=== PATIENT | female | born 1995 | race Caucasian/White ===

== ENCOUNTER 2022-02-06 14:27 | Outpatient (CLI) | payer OTHER, SELFPAY ==
[2022-02-06 16:14] LABS: Basophils Percent Auto 0.4 % (0.2-1.2); Eosinophils Absolute Auto 0.1 K/mm3 (0-0.3); Eosinophils Percent Auto 1.1 % (0-4.4); Hematocrit 34.4 % (37.0-47.0); Hemoglobin 11.6 g/dL (12.0-15.0); Immature Granulocyte Absolute 0.02 K/mm3 (0.00-0.031); Immature Granulocyte Percent A 0.2 % (0-0.5); Lymphocytes Absolute Auto 2.05 K/mm3 (0.9-3.2); Lymphocytes Percent Auto 23.9 % (18.3-44.2); Mean Corpuscular HGB Conc 33.7 g/dl (32-36); Mean Corpuscular Hemoglobin 30.5 pg (26-34); Mean Corpuscular Volume 90.5 fl (80-100); Monocytes Absolute Auto 0.5 K/mm3 (0.1-0.6); Neutrophils Absolute Auto 5.9 K/mm3 (1.3-6.7); Neutrophils Percent Auto 68.4 % (45.5-73.1); Platelet Count Result 232 k/mm3 (150-375); Red Cell Distribution Width 12.5 % (11.5-14.5); White Blood Count 8.6 K/mm3 (4.5-10.0)
[2022-02-06 16:22] LABS: Glucose 1 Hour PP 50gm Dose 105 mg/dL
[2022-02-06 17:04] LABS: HIV 1/2 Ab P24 Ag Result Negative (Negative)
[2022-02-06 17:41] LABS: Hepatitis B Surface Antigen Negative (Negative); Rubella IgG Antibody 15.4 IU/ML
[2022-02-07 11:32] LABS: Rapid Plasma Reagin Non-Reactive (NonReactive)
[2022-02-08 17:31] LABS: CMV IgG Antibody <0.60 U/mL (<0.60)
[2022-02-28 13:46] LABS: CF Result NEGATIVE (NEGATIVE); Ethnicity NG
== END 2022-02-06 14:28 | disposition home or self-care (01) ==
LOC: ANHLAB 14:29
PROVIDERS: PCP Family Medicine; Visit Provider Obstetrics & Gynecology
DX: N94.89 Other specified conditions associated with female genital organs and menstrual cycle (principal)
CPT/HCPCS: 36415; 81220; 82947; 85025; 86592; 86644; 86703; 86747; 86762; 86787; 86850; 86900; 86901; 87086; 87088; 87340; G0432

== ENCOUNTER 2022-04-30 16:11 | Outpatient (CLI) | payer OTHER, SELFPAY ==
[2022-04-30 17:17] VITALS: BP 114/61; PULSE 70
[2022-04-30 17:31] VITALS: BP 110/57; PULSE 64
[2022-04-30 17:32] LABS: Appearance Urine Cloudy (Clear); Bilirubin Urine 1+ (Negative); Blood Urine Negative (Negative); Color Urine Yellow (Yellow); Glucose Urine UA Negative (Negative); Ketones Urine Negative (Negative); Leukocyte Esterase Ur Negative LEU/UL (Negative); Nitrate Urine Negative (Negative); Protein Urine Negative (Negative)
--- NOTE | 2022-04-30 17:43 | PC.NURSE ---
Irritable uterine activity noted; Pt does not feel any uterine contractions; Pt placed back on monitor to further monitor and increased PO hydration
[2022-04-30 17:46] VITALS: BP 114/61; PULSE 64
--- NOTE | 2022-04-30 17:59 | PC.NURSE ---
Report given to Dr. Rodríguez including uterine irritability improved by PO hydration, FHR, negative ROM plus. Orders to discharge patient
[2022-04-30 18:01] LABS: Budding Yeast Urine Present /hpf; Mucus Urine Few /lpf; RBC Urine 0-2 /hpf (0-2)
[2022-04-30 18:02] LABS: Add Urine Microscopic? YES
== END 2022-04-30 18:20 | disposition home or self-care (01) ==
LOC: ANHOBOP 16:16 → ANHOBPP 16:17
PROVIDERS: PCP Family Medicine; Visit Provider Obstetrics & Gynecology
DX: O41.8X90 Other specified disorders of amniotic fluid and membranes, unspecified trimester, not applicable or unspecified (principal); Z3A.00 Weeks of gestation of pregnancy not specified
CPT/HCPCS: 59025; 81001; 84112; 99199

== ENCOUNTER 2022-05-30 09:11 | Outpatient (CLI) | payer OTHER, SELFPAY ==
[2022-05-30 11:04] LABS: Basophils Percent Auto 0.3 % (0.2-1.2); Eosinophils Absolute Auto 0.1 K/mm3 (0-0.3); Eosinophils Percent Auto 0.6 % (0-4.4); Hematocrit 31.7 % (37.0-47.0); Hemoglobin 10.5 g/dL (12.0-15.0); Immature Granulocyte Absolute 0.03 K/mm3 (0.00-0.031); Immature Granulocyte Percent A 0.3 % (0-0.5); Lymphocytes Absolute Auto 1.79 K/mm3 (0.9-3.2); Lymphocytes Percent Auto 18.7 % (18.3-44.2); Mean Corpuscular HGB Conc 33.1 g/dl (32-36); Mean Corpuscular Hemoglobin 30.5 pg (26-34); Mean Corpuscular Volume 92.2 fl (80-100); Mean Platelet Volume 11.1 fl (7.4-10.4); Monocytes Absolute Auto 0.6 K/mm3 (0.1-0.6); Monocytes Percent Auto 6.6 % (2.6-8.5); Neutrophils Percent Auto 73.5 % (45.5-73.1); Platelet Count Result 230 k/mm3 (150-375); Red Blood Count 3.44 M/mm3 (4.2-5.4); Red Cell Distribution Width 12.8 % (11.5-14.5); White Blood Count 9.6 K/mm3 (4.5-10.0)
[2022-05-30 11:16] LABS: Glucose 1 Hour PP 50gm Dose 145 mg/dL
[2022-05-30 11:53] LABS: HIV 1/2 Ab P24 Ag Result Negative (Negative)
== END 2022-05-30 09:12 | disposition home or self-care (01) ==
LOC: ANHLAB 09:13
PROVIDERS: PCP Family Medicine; Visit Provider Obstetrics & Gynecology
DX: Z34.90 Encounter for supervision of normal pregnancy, unspecified, unspecified trimester (principal); Z3A.00 Weeks of gestation of pregnancy not specified
CPT/HCPCS: 36415; 82947; 85025; 86703; G0432

== ENCOUNTER 2022-06-04 08:05 | Outpatient (CLI) | payer OTHER, SELFPAY ==
[2022-06-04 08:40] LABS: Glucose Fasting Gestational 96 mg/dL (>/=95)
[2022-06-04 10:19] LABS: Glucose 1 Hour Gest 194 mg/dL (>/=180)
[2022-06-04 11:18] LABS: Glucose 2 Hour Gest 133 mg/dL (>/= 155)
[2022-06-04 12:19] LABS: Glucose 3 Hour Gest 122 mg/dL (>/=140)
== END 2022-06-04 08:06 | disposition home or self-care (01) ==
LOC: ANHLAB 08:06
PROVIDERS: PCP Family Medicine; Visit Provider Obstetrics & Gynecology
DX: R73.09 Other abnormal glucose (principal)
CPT/HCPCS: 36415; 82951; 82952

== ENCOUNTER 2022-08-11 09:07 | Outpatient (CLI) | payer OTHER, SELFPAY ==
[2022-08-11 09:26] LABS: Hematocrit 33.4 % (37.0-47.0); Hemoglobin 11.7 g/dL (12.0-15.0); Mean Corpuscular Hemoglobin 30.8 pg (26-34); Mean Corpuscular Volume 87.9 fl (80-100); Platelet Count Result 225 k/mm3 (150-375); White Blood Count 7.5 K/mm3 (4.5-10.0)
[2022-08-13 11:53] LABS: Rapid Plasma Reagin Non-Reactive (NonReactive)
== END 2022-08-11 09:08 | disposition home or self-care (01) ==
LOC: ANHLAB 09:09
PROVIDERS: PCP Family Medicine; Visit Provider Obstetrics & Gynecology
DX: Z34.93 Encounter for supervision of normal pregnancy, unspecified, third trimester (principal); Z3A.00 Weeks of gestation of pregnancy not specified
CPT/HCPCS: 36415; 85027; 86592; 86850; 86900; 86901

== ENCOUNTER 2022-08-13 05:28 | Inpatient (IN) | payer OTHER, SELFPAY ==
[2022-08-13] VITALS (66 sets, daily range): BP systolic 117–166; BP diastolic 78–110; PULSE 53–215; RESP 12–18; TEMP 36.6–37.6; O2SAT 92–100; BMI 40.4
--- NOTE | 2022-08-13 05:55 | LDADM ---
This patient, Fadumo Yoder, was admitted to Labor/Delivery/Recovery 120 on 08/13/22 at 05:28. Plans for labor, pain management and were discussed with patient. Patient/family oriented to hospital policies and general routines including ID bracelet, bed and alarms, visiting hours, pain management, procedures, bathroom and other care routines, personal items, smoking policy, room service/diet and guest tray routines, infant security routines, and visiting hours. Patient/Family are encouraged to report perceived risks to care and to ask questions if they do not understand what they are told or what they should do. See [facility] for further documentation.
[2022-08-13] MEDS: LACTATED RINGERS 250 ML 999 ML IVPB (06:30)
--- NOTE | 2022-08-13 06:56 | WPDHPUPDATE1 ---
History and Physical Update Update Date/Time: 08/13/22 06:56 History and Physical has been reviewed, including an updated exam of the patient. There are NO changes in the patient's condition. Risks, benefits, and alternatives have been discussed and questions answered. Patient agrees to proceed with procedure. Fadumo is a 27yo @ 39.2wks who presents for repeat w/ BTL Her is complicated by: - Previous c/s -- for repeat - sterilization requested - Anxiety/depression on zoloft - Obesity - A1GDM; following w/ MFM - Covid infection 08/06/22 FHT's:
--- NOTE | 2022-08-13 07:02 | WPDOBADMIT ---
Obstetrics - Admit Note Admission Note: record reviewed. No pertinent additions to the history and/or any subsequent changes in the physical findings that are not consistent with the expected course of the were found. Additions to the history and/or subsequent changes in the physical findings follow. Fadumo is a 27yo @ 39.2wks who presents for repeat w/ BTL Her is complicated by: - Previous c/s -- for repeat - sterilization requested - Anxiety/depression on zoloft - Obesity - A1GDM; following w/ MFM - Covid infection 08/06/22 FHT's: 125/mod davy/ + accels/ no decels TOCO; irregular ctx's Risks/benefits explained in detail. Proceed with and BTL.
--- NOTE | 2022-08-13 07:03 | WPDHPUPDATE1 ---
History and Physical Update Update Date/Time: 08/13/22 07:03 History and Physical has been reviewed, including an updated exam of the patient. There are NO changes in the patient's condition. Risks, benefits, and alternatives have been discussed and questions answered. Patient agrees to proceed with procedure.
--- NOTE | 2022-08-13 07:12 | WPDANESEPPF ---
Anes - Initial Pre Proc Eval Procedure: Operation Date: 08/13/22 07:30 Proposed Procedures p Repeat Section - Mayuri Borja MD Date/Time: 08/13/22 07:12 Surgeon: Mayuri Borja MD Pre Op Diagnosis: c/s Patient Data Age: 27 Gender: F Height: 1.55 m Weight: 97 kg Last Vital Signs Pulse 83 08/13/22 06:21 BP 127/87 08/13/22 06:21 Allergies Allergy/AdvReac Type Severity Reaction Status Date / Time No Known Allergies Allergy Verified 08/08/22 09:38 Home Medications Medication Instructions Recorded Confirmed Type famotidine 20 mg tablet (Acid 20 mg PO DAILY #90 tabs 01/11/22 08/13/22 Rx Senior Designer/Art Director (famotidine)) vits 75-iron 28 mg-folic 1 pkg PO DAILY 01/11/22 08/13/22 History acid 800 mcg-omega3 440 mg oral pack (One Daily ) sertraline 50 mg tablet 50 mg PO DAILY #90 tabs 01/11/22 07/20/22 Rx pyridoxine (vitamin B6) 25 mg 25 mg PO TID #120 tabs 04/23/22 07/20/22 Rx tablet Patient hx anesthesia problems: none Family hx anesthesia problems: none Results Review: All pre-operative results and documents have been reviewed as part of the pre-operative evaluation. [facility] Past Medical History Medical History Anxiety disorder Depression Suppression of menses Termination of 2014 Surgical History Surgical History History of dilation and curettage 2015 D&C scar tissue- menometrorrhagia History of tonsillectomy Previous section primary c/s - breech presentation Family History Family History Other Patient denies significant medical history Social History Social History Smoking status: Never smoker Alcohol intake: never Substance use: never Substance use type: does not use Lack of Transportation: No Lack of Food: Never True Current Housing: I Have Housing Concerned About Future Housing: No Difficulty Paying Gas/Electric Bills: No Difficulty Paying for Meds: No Currently Unemployed: No Education: High School Diploma/GED Difficulty w/ Childcare or Family Care: No Gender identity (if verbalized by the patient): Female Sexual Orientation (if Verbalized by the Patient): Straight or Heterosexual Spiritual care concerns: No Anes - Eval Final PreProcedure Day of Procedure 08/13/22 07:12 Patient weight: obese Heart: regular rate and rhythm Lungs: clear to auscultation Airway: Mallampati scale class II Neurological: alert and oriented Last oral intake: >/= 8 hours ASA classification: II Emergent: no Anesthetic plan: proceed Anesthesia type and monitoring: regional spinal Results Review: All pre-operative results and documents have been reviewed as part of the pre-operative evaluation. Informed Consent: The patient's anesthetic plan and its attendant risks and benefits were discussed with the patient/family/POA. Questions were solicited and answers provided to the satisfaction of the patient/family/POA.
[2022-08-13] MEDS: ceFAZolin 2 GM/D5W 50 ML 2 GM/50 ML BAG IVPB (07:23)
--- NOTE | 2022-08-13 08:50 | PM.OBPRVD ---
OB - Delivery Note Procedure Delivery date: 08/13/22 Procedure: Procedures Operation Date: 08/13/22 07:30 <No data on this case meets the specified criteria> Events: Previous Delivery Route of delivery: (with bilateral tubal ligation) Quantitative Blood Loss (ml): 555 Anesthesia type: Spinal Disposition: Floor [place] Baby Date of : 08/13/22 Time of : 08:03 Weeks of gestation at delivery: 39 (.2) gender: Male Weight (pounds): 7 Weight (ounces): 11 presentation: vertex Placenta delivery description: Expressed Cord Vessel Description: 3 Vessels, Clamped/Cut and Delayed Cord Clamping score one minute: 9 score five minutes: 9 Narrative: She was counseled on all risks and benefits in detail. She was taken to the operating room where spinal was placed. She was then prepped and draped in the normal sterile fashion. She received 2g Ancef and a time out was performed. A Pfannenstiel incision was made in the skin and carried down to the underlying fascia. The fascia was nicked on either side of the midline and the fascial incision was extended laterally and superiorly using curved Silva scissors. The fascia was then elevated using Leticia clamps and the underlying rectus muscles were dissected off the fascia, superiorly and inferiorly. The rectus muscles were then in the midline and the peritoneum was entered bluntly. Once adequate exposure was obtained, a Mobius self retractor was placed within the abdomen. A low transverse incision was made on the lower uterine segment (noted to be very thin) and thin meconium stained fluid was noted. The occiput was brought to the hysterotomy and the head was easily delivered. The shoulders and body then followed without complications. The infant had spontaneous cry and the mouth and nose were bulb suctioned. The cord was clamped and cut and the infant was handed off to the awaiting pediatric nurse. A segment of the cord was collected for cord gases. The remaining cord blood was collected for typing. With pitocin infusing, the placenta delivered with gentle traction on the cord without complications. The uterus was then cleared out of all clots and debris using a clean, moist lap. The hysterotomy was then repaired in a running, locking fashion using 0 Vicryl. A figure of eight stitch using 0 Vicryl was placed in the middle of the hysterotomy, and it was found to be hemostatic and good uterine tone was noted. The bilateral adnexa were examined and found to be normal. The left fallopian tube was elevated using a [place]; slight adhesions were noted and some were released in order to do the tubal. A segment of the tubal was doubly ligated using 0 Chromic suture. The tubal segment was incised and removed from the abdomen. The raw edges were bovie cauterized. The same procedure was then performed on the right side without issue. Good hemostasis was noted. The hysterotomy was examined and found to be hemostatic. The pelvis was cleared of all clots and fluid. The Mobius retractor was removed from the abdomen. The peritoneum, muscle, and fascia were examined and made hemostatic with bovie cautery. The fascia was then repaired using a 0 Vicryl suture in a running fashion. The subcutaneous tissue was then irrigated and made hemostatic with bovie cautery. The subcutaneous tissue was then reapproximated using 2-0 Vicryl. The skin was then closed using 4-0 Monocryl in a running subcuticular fashion. Sponge, lap, needle and instrument counts were correct at the end of the procedure x2. The patient tolerated the procedure well and was taken to recovery in a stable condition. [facility] Delivery Billing Delivery Delivery: Delivery Charge
[2022-08-13] MEDS: KETOROLAC 15 MG/ML VIAL (*BKC) IV PUSH (09:09)
[2022-08-13] MEDS: LORATADINE 10 MG TABLET PO (09:12)
[2022-08-13 09:37] LABS: Glucose Point of Care 94 mg/dl (65-105)
[2022-08-13] MEDS: fentaNYL CITRATE INJ (*CRX) 100 MCG/2 ML VIAL 25 MCG IV PUSH ×3 (09:47→10:45)
[2022-08-13] MEDS: diphenhydrAMINE HCl INJ 50 MG/ML VIAL 25 MG IV PUSH ×2 (10:12→20:35)
[2022-08-13] MEDS: DEXTROSE 5%/0.45% SOD CHL 1,000 ML 125 ML IV CONT (11:00)
[2022-08-13] MEDS: KETOROLAC 30 MG/ML VIAL (*BKC) IV PUSH (11:19)
[2022-08-13] MEDS: SIMETHICONE 80 MG TAB.CHEW PO (15:10)
[2022-08-13] MEDS: HYDROcodone/acetaminophen (*CRX) 10-325 MG TABLET 1 TAB PO ×2 (15:10→18:37)
[2022-08-13] MEDS: DOCUSATE SODIUM 100 MG CAPSULE PO (18:38)
[2022-08-13] MEDS: ONDANSETRON INJ 4 MG/2 ML VIAL IV PUSH (20:36)
[2022-08-14 00:30] VITALS: BP 116/72; PULSE 81; RESP 18; TEMP 36.8; O2SAT 98
[2022-08-14] MEDS: HYDROcodone/acetaminophen (*CRX) 10-325 MG TABLET 1 TAB PO ×7 (00:40→22:16)
[2022-08-14 03:30] VITALS: BP 135/88; PULSE 66; RESP 18; TEMP 36.6; O2SAT 99
[2022-08-14 05:40] LABS: Basophils Percent Auto 0.3 % (0.2-1.2); Eosinophils Percent Auto 0.4 % (0-4.4); Hemoglobin 9.5 g/dL (12.0-15.0); Immature Granulocyte Absolute 0.06 K/mm3 (0.00-0.031); Immature Granulocyte Percent A 0.6 % (0-0.5); Lymphocytes Absolute Auto 2.21 K/mm3 (0.9-3.2); Lymphocytes Percent Auto 22.1 % (18.3-44.2); Mean Corpuscular HGB Conc 33.9 g/dl (32-36); Mean Corpuscular Hemoglobin 31.3 pg (26-34); Mean Corpuscular Volume 92.1 fl (80-100); Mean Platelet Volume 12.5 fl (7.4-10.4); Monocytes Absolute Auto 0.7 K/mm3 (0.1-0.6); Monocytes Percent Auto 6.8 % (2.6-8.5); Neutrophils Percent Auto 69.8 % (45.5-73.1); Platelet Count Result 161 k/mm3 (150-375); Red Blood Count 3.04 M/mm3 (4.2-5.4); Red Cell Distribution Width 13.2 % (11.5-14.5)
--- NOTE | 2022-08-14 07:54 | WPDANLDNPN2 ---
Anes-Prog Note L&D-Neuraxial Date/Time: 08/14/22 07:54 Neuraxial medications: intrathecal PF morphine Opiod-related complaints: none Patient feedback: Patient satisfied with post-operative pain management.
--- NOTE | 2022-08-14 07:55 | WPDANLDPN2 ---
Anes-Prog Note L&D Date/Time: 08/14/22 07:55 Comfortable throughout: section Neuraxial method: spinal Epidural/Spinal procedure site: clean & non-tender Neuro status: Neuro function grossly intact. Cardiovascular status: normal Respiratory status: normal Airway patency: baseline Mental status: baseline Post-Op hydration status: normal Vital Signs: Last Vital Signs Temp 36.6 C 08/14/22 03:30 Pulse 66 08/14/22 03:30 Resp 18 08/14/22 03:30 BP 135/88 08/14/22 03:30 Pulse Ox 99 08/14/22 03:30 O2 Del Method Room Air 08/14/22 03:30 Pain score (VAS): 09/18 I/O: Intake & Output 08/13/22 08/13/22 08/14/22 15:59 23:59 07:59 Intake Total 400 240 300 Output Total 605 900 Balance -205 240 -600 Post-procedural complaints: none Patient feedback: Patient satisfied with anesthetic care.
[2022-08-14] MEDS: DOCUSATE SODIUM 100 MG CAPSULE PO ×2 (08:32→15:28)
[2022-08-14] MEDS: IBUPROFEN 600 MG TABLET PO ×3 (08:32→21:26)
[2022-08-14] MEDS: SERTRALINE HCL 50 MG TABLET PO (08:33)
[2022-08-14] MEDS: POLYSACCHARIDE IRON COMPLEX 150 MG CAPSULE PO ×2 (08:33→19:36)
[2022-08-14 08:35] VITALS: BP 128/80; PULSE 80; RESP 18; TEMP 37.7; O2SAT 100
[2022-08-14] MEDS: SIMETHICONE 80 MG TAB.CHEW PO ×4 (08:43→21:26)
--- NOTE | 2022-08-14 12:29 | P.PNOB_ITS ---
OB - PN: Subj Subjective Date/time seen: 08/14/22 12:15 Narrative: POD#1 Fadumo reports doing ok today. 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 Her pain is not fully controlled, has received a couple doses of 10mg of norco back to back and her pain is now better. She is tolerating regular diet. She still has the catheter in place. She has not passed gas or ambulated yet. She denies any issues with her incision. She is bottle feeding. She would like her son shell chinchilla. OB - PN: Obj Data Labs 08/14/22 03:36 Labs: Laboratory Results - last 24 hr 08/14/22 03:36 WBC 10.0 RBC 3.04 L Hgb 9.5 L Hct 28.0 L MCV 92.1 MCH 31.3 MCHC 33.9 RDW 13.2 Plt Count 161 MPV 12.5 H Immature Gran % (Auto) 0.6 H Neut % (Auto) 69.8 Lymph % (Auto) 22.1 [place] % (Auto) 6.8 Eos % (Auto) 0.4 Baso % (Auto) 0.3 Lymph # (Auto) 2.21 [place] # (Auto) 0.7 H Eos # (Auto) 0.0 Baso # (Auto) 0.0 Abs Immat Gran (auto) 0.06 H Absolute Neuts (auto) 7.0 H Absolute Nucleated RBC 0.0 Nucleated RBC % 0.0 OB - PN A/P Assessment and Plan (1) S/P section: Code(s): Z98.891 - History of uterine scar from previous surgery Status: Acute (2) S/P tubal ligation: Code(s): Z98.51 - Tubal ligation status Status: Acute Plan day: 1 Plan: routine care Comments: - remove pena; ambulated - if pain not better after, will try percocet Time Spent With Patient Time: Total time spent is greater than 50% in coordination of care (as documented) at patient's floor/unit and/or counseling patient: Review of Systems Constitutional: Constitutional: Denies chills, Denies fever(s) and Denies headache(s) Eyes: Eyes: Denies change in vision ENT: Denies dizziness and Denies headache(s) Cardiovascular: Cardiovascular: Denies chest pain, Denies palpitations and Denies dyspnea Respiratory: Respiratory: Denies cough and Denies dyspnea Gastrointestinal: Gastrointestinal: Denies nausea and Denies vomiting Genitourinary: Comments: normal bleeding Neurologic: Denies dizziness and Denies headache(s) Endocrine: Endocrine: Denies palpitations Exam Const: General: cooperative, comfortable and no acute distress Orientati on/consciousness: patient oriented x3 Resp: Effort & Inspection: normal respiratory effort Auscultation: clear to auscultation bilaterally Cardio: Rate: regular rate GI: Inspection: non-distended and incision (covered with clean dressing) GI Palp: Yes abdominal tenderness (appropriate) and Yes Soft to palpation Auscultation: normal bowel sounds : Other: fundus firm Skin: General skin exam: normal color Neuro: General: patient oriented x3 Extrem: General: normal to inspection Psych: Appearance: grossly normal Affect: normal affect Attitude: cooperative
[2022-08-14] MEDS: ONDANSETRON INJ 4 MG/2 ML VIAL IV PUSH (12:59)
[2022-08-14 15:29] VITALS: BP 139/89; PULSE 63; RESP 16; TEMP 36.4; O2SAT 100
[2022-08-14 19:00] VITALS: BP 138/88; PULSE 69; RESP 18; TEMP 36.7; O2SAT 96
[2022-08-15] MEDS: IBUPROFEN 600 MG TABLET PO ×3 (04:25→19:16)
[2022-08-15] MEDS: HYDROcodone/acetaminophen (*CRX) 10-325 MG TABLET 1 TAB PO ×2 (04:25→09:21)
[2022-08-15] MEDS: SIMETHICONE 80 MG TAB.CHEW PO ×3 (04:26→16:25)
[2022-08-15] MEDS: ONDANSETRON HCL ODT 4 MG TABLET PO ×2 (04:47→09:22)
--- NOTE | 2022-08-15 07:07 | PM.IMHP ---
H&P: HPI History of Present Illness Date/Time: 08/23/22 15:52 Chief Complaint: repeat Narrative: Fadumo is a 27yo @ 39.2wks who presents for repeat w/ BTL. Her is complicated by: - Previous c/s -- for repeat - sterilization requested - Anxiety/depression on zoloft - Obesity - A1GDM; following w/ MFM - Covid infection 08/06/22 Review of Systems Constitutional: Constitutional: Denies chills and Denies fever(s) Cardiovascular: Cardiovascular: Denies chest pain Respiratory: Respiratory: Denies cough Gastrointestinal: Gastrointestinal: Denies abdominal pain, Denies nausea and Denies vomiting Psychiatric: Psychiatric: Denies anxiety and Denies depression PMF Past Medical History Medical History Anxiety disorder Depression Suppression of menses Termination of 2014 Surgical History Surgical History History of dilation and curettage 2014 D&C scar tissue- menometrorrhagia History of tonsillectomy Previous section primary c/s - breech presentation Family History Family History Other Patient denies significant medical history Social History Social History Smoking status: Never smoker Alcohol intake: never Substance use: never Substance use type: does not use Lack of Transportation: No Lack of Food: Never True Current Housing: I Have Housing Concerned About Future Housing: No Difficulty Paying Gas/Electric Bills: No Difficulty Paying for Meds: No Currently Unemployed: No Education: High School Diploma/GED Difficulty w/ Childcare or Family Care: No Gender identity (if verbalized by the patient): Female Sexual Orientation (if Verbalized by the Patient): Straight or Heterosexual Spiritual care concerns: No Meds Home Medications and Allergies Home Medications Medication Instructions Recorded Confirmed Type famotidine 20 mg tablet (Acid 20 mg PO DAILY #90 tabs 01/11/22 08/13/22 Rx Human Resources Talent Manager (famotidine)) vits 75-iron 28 mg-folic 1 pkg PO DAILY 01/11/22 08/13/22 History acid 800 mcg-omega3 440 mg oral pack (One Daily ) sertraline 50 mg tablet 50 mg PO DAILY #90 tabs 01/11/22 07/20/22 Rx acetaminophen 325 mg tablet (Mapap 650 mg PO Q6H PRN Mild Pain (1-3) 08/15/22 Rx (acetaminophen)) #60 tabs docusate sodium 100 mg capsule 100 mg PO BID #40 caps 08/15/22 Rx ibuprofen 600 mg tablet 600 mg PO Q6H PRN Cramping #40 tabs 08/15/22 Rx oxycodone-acetaminophen 5 mg-325 See Rx Instructions .Route 08/15/22 Rx mg tablet .COMPLEX PRN Pain #24 tabs polysaccharide iron complex 150 mg 150 mg PO BIDWM #60 caps 08/15/22 Rx iron capsule Allergies Allergy/AdvReac Type Severity Reaction Status Date / Time No Known Allergies Allergy Verified 08/08/22 09:38 Exam Const: General: cooperative, healthy appearing, comfortable and no acute distress Resp: Effort & Inspection: normal respiratory effort Cardio: Rate: regular rate GI: Inspection: normal to inspection GI Palp: No abdominal tenderness and Yes Soft to palpation : Other: FHT's: 125/mod davy/ + accels/ no decels TOCO; irregular ctx's Skin: General skin exam: normal color Neuro: General: patient oriented x3 Extrem: General: normal to inspection Psych: Appearance: grossly normal Affect: normal affect Attitude: cooperative Assessment and Plan Assessment and plan (1) Previous delivery affecting : Code(s): O34.219 - Maternal care for unspecified type scar from previous delivery Status: Acute Assessment and Plan: - proceed with scheduled repeat with BTL - [place] sterilization form verified
[2022-08-15 08:10] VITALS: BP 139/85; PULSE 67; RESP 18; TEMP 36.3; O2SAT 100
[2022-08-15] MEDS: SERTRALINE HCL 50 MG TABLET PO (09:22)
[2022-08-15] MEDS: POLYSACCHARIDE IRON COMPLEX 150 MG CAPSULE PO ×2 (09:23→16:25)
[2022-08-15] MEDS: DOCUSATE SODIUM 100 MG CAPSULE PO ×2 (09:23→16:25)
[2022-08-15] MEDS: MULTIVIT/MIN/PREN/FOL AC/IRON TABLET 1 TAB PO (09:23)
--- NOTE | 2022-08-15 09:50 | PC.NURSE ---
On 08/15/22, the student, Fatemeh Hernandez, provided care and completed [facility] documentation on this patient. I have reviewed the student's documentation and agree with the findings.
[2022-08-15 11:35] VITALS: BP 158/98; PULSE 64; RESP 16; TEMP 36.7; O2SAT 96
[2022-08-15] MEDS: diphenhydrAMINE HCl CAP 25 MG CAPSULE PO (12:29)
[2022-08-15] MEDS: oxyCODONE/ACETAMINOPHEN (*CRX) 5-325 MG TABLET PO ×3 (12:35→22:44)
--- NOTE | 2022-08-15 12:36 | PM.OBPNVD ---
OB - PN: Subj Subjective Date/time seen: 08/15/22 12:36 Narrative: POD#2 Fadumo reports doing ok today, but just started breaking out in a rash on her chest/face-- thinks it's the norco as that's the only new medication. 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 Her pain is controlled. She is tolerating regular diet, voiding, passing gas, and ambulating without issues. She denies any issues with her incision. She is bottle feeding. She was also noted to have an elevated BP recently; denies any symptoms. OB - PN: Obj Data Labs 08/14/22 03:36 OB - PN A/P Assessment and Plan (1) S/P section: Code(s): Z98.891 - History of uterine scar from previous surgery Status: Acute (2) S/P tubal ligation: Code(s): Z98.51 - Tubal ligation status Status: Acute Plan day: 2 Plan: routine care and discharge home (in AM if BPs stable) Comments: - Stop norco; switch to percocet as she has had that in the past w/o issue; also gave benadryl - will keep overnight to monitor BPs; currently asymptomatic - Pelvic rest; take meds as prescribed - Incision care/no heavy lifting - ER return precautions: fever, n/v/abd pain, bleeding, HTN Time Spent With Patient Time: Total time spent is greater than 50% in coordination of care (as documented) at patient's floor/unit and/or counseling patient: Review of Systems Constitutional: Constitutional: Denies chills, Denies fever(s) and Denies headache(s) Eyes: Eyes: Denies change in vision ENT: Denies dizziness and Denies headache(s) Cardiovascular: Cardiovascular: Denies chest pain, Denies palpitations and Denies dyspnea Respiratory: Respiratory: Denies cough and Denies dyspnea Gastrointestinal: Gastrointestinal: Denies nausea and Denies vomiting Genitourinary: Comments: normal bleeding Neurologic: Denies dizziness and Denies headache(s) Endocrine: Endocrine: Denies palpitations Exam Const: General: cooperative, comfortable, no acute distress and obese Orientation/consciousness: patient oriented x3 Resp: Effort & Inspection: normal respiratory effort Auscultation: clear to auscultation bilaterally Cardio: Rate: regular rate GI: Inspection: non-distended and incision (covered with clean dressing) GI Palp: Yes abdominal tenderness (appropriate) and Yes Soft to palpation Auscultation: normal bowel sounds : Other: fundus firm Skin: General skin exam: normal color Neuro: General: patient oriented x3 Extrem: General: normal to inspection Psych: Appearance: grossly normal Affect: normal affect Attitude: cooperative
[2022-08-15 17:50] VITALS: BP 133/80
[2022-08-15 19:05] VITALS: BP 147/77; PULSE 62; RESP 18; TEMP 36.6; O2SAT 100
--- NOTE | 2022-08-15 22:00 | PC.NURSE ---
Patient viewed the discharge video Mother & Baby Care, The First Two Weeks . Patient was given the opportunity and encouraged to ask questions. Patient verbalized understanding of information shared and has been given the mother/baby guide for home reference.
[2022-08-16] MEDS: IBUPROFEN 600 MG TABLET PO ×2 (01:10→07:59)
[2022-08-16] MEDS: SIMETHICONE 80 MG TAB.CHEW PO ×2 (01:14→07:58)
[2022-08-16 07:55] VITALS: BP 141/80; PULSE 70; RESP 16; TEMP 37.5; O2SAT 100
[2022-08-16] MEDS: MULTIVIT/MIN/PREN/FOL AC/IRON TABLET 1 TAB PO (07:58)
[2022-08-16] MEDS: SERTRALINE HCL 50 MG TABLET PO (07:58)
[2022-08-16] MEDS: POLYSACCHARIDE IRON COMPLEX 150 MG CAPSULE PO (07:59)
[2022-08-16] MEDS: oxyCODONE/ACETAMINOPHEN (*CRX) 5-325 MG TABLET PO ×2 (07:59→12:08)
[2022-08-16] MEDS: DOCUSATE SODIUM 100 MG CAPSULE PO (07:59)
[2022-08-16 10:00] VITALS: BP 151/91; PULSE 58; RESP 16; TEMP 36.8; O2SAT 98
--- NOTE | 2022-08-16 10:15 | PC.NURSE ---
Patient complains of rash on face, chest and arms. VSS, Dr. Borja notified. Orders received to give po Benadryl, keep pt till next dose of Percocet to see if reaction happens again.
[2022-08-16] MEDS: diphenhydrAMINE HCl CAP 25 MG CAPSULE PO (10:24)
--- NOTE | 2022-08-16 13:14 | PC.NURSE ---
Pt. denies rash and itching at this time. It has been an hour since the percocet was given and she feels Fine
--- NOTE | 2022-08-16 14:01 | PC.NURSE ---
Dr. Borja notified that patient has not had a reaction to the medication. Pt may be discharged to home, pt to have benadryl or zyrtec on hand at home in case reaction occurs again and to call Dr. Borja if a reaction occurs.
[2022-08-17 10:29] VITALS: BP 139/92; RESP 18; TEMP 36.6; O2SAT 99
--- NOTE | 2022-08-20 11:06 | PM.OBDSVD ---
DS: Admitting Diagnosis Discharge Date 08/16/22 Admitting Diagnosis Prior A1GDM DS: Discharge Diagnosis Discharge Diagnosis (1) S/P section: Code(s): Z98.891 - History of uterine scar from previous surgery Status: Acute (2) S/P tubal ligation: Code(s): Z98.51 - Tubal ligation status Status: Acute OB - DS: Summary OB Procedures : Ultrasound OB Procedures Intrapartum: low cervical, transverse and Tubal ligation OB Procedures: : None Peripartum Data Delivery Method: Section Procedures: Procedures Operation Date: 08/13/22 07:30 Actual Procedure Side Surgeon p Repeat Section Not Applicable Mayuri Borja MD complications: none 1: Gender: Male Disposition of : home Status at Discharge Functional status at discharge: independent ambulation Overall status at discharge: patient is back to baseline Time Spent with Patient Time attestation: Total time spent providing and/or coordinating discharge services: Time spent: Less than 30 minutes Exam Const: General: cooperative, comfortable and no acute distress Orientation/consciousness: patient oriented x3 Resp: Effort & Inspection: normal respiratory effort Auscultation: clear to auscultation bilaterally Cardio: Rate: regular rate GI: Inspection: non-distended GI Palp: No abdominal tenderness and Yes Soft to palpation Auscultation: normal bowel sounds : Other: fundus firm Skin: General skin exam: normal color Neuro: General: patient oriented x3 Extrem: General: normal to inspection Psych: Appearance: grossly normal Affect: normal affect Attitude: cooperative DS: Data Data Completed and Pending Completed studies during hospitalization: Pending at discharge 08/13/22 08:04 Surgical [PTH] Routine Surgical [PTH] Routine Surgical [PTH] Routine Discharge Plan Discharge Attending physician on discharge: Mayuri Borja Consulting providers: Jonh Christy ; Melissa Steiner Discharging Clinician: Mayuri Borja Anticipated Discharge Date/Time: 08/16/22 10:00 Patient Disposition: Home, Self-Care Activity: may drive after 2 weeks, pelvic rest and other - see discharge instructions Diet: regular Discharge Instructions: no heavy lifting > 10 pounds for 6 weeks remove dressing by 08/19/22 (if it gets wet in the shower, remove before that date) Have Benadryl and/or Zyrtec on hand at home in case allergic reaction occurs to medication, call Dr. Borja if reaction occurs. Take own Iron, vitamins and Motrin. Education: Mom and Baby Guide Given to: Mother Follow-Up: Call your delivering provider's office for an appointment to be seen in: 4 Weeks Mom and baby should come to the [facility] for the follow-up appointment. Appointment Date/Time: August 17, 2022 at 10:00 am What to expect at your follow-up visit: Blood Pressure Check Physical Assessment Call [phone] if you are unable to keep your appointment time. BREAST CARE: * Wear a snug supportive bra. * For engorgement discomfort: Breast Feeding: * Apply warm moist washcloths * Express milk as needed to relieve engorgement * Wear loose clothing Bottle Feeding: * May apply ice packs * For sore nipples: * Identify correct latch-on * Apply warm moist washcloths before and after nursing * Air dry nipples after nursing * May apply Lansinoh cream to nipples ABDOMINAL INCISION: (if applicable) * Allow incision to air dry * Do NOT use lotions for powders on your incision * When showering, allow soap and water to run over the incision, but do not wash incision EPISIOTOMY/PERINEAL CARE: * Until bleeding stops, use your nora bottle after urinating * Change your pad frequently throughout the day * You ma
== END 2022-08-16 14:45 | disposition home or self-care (01) | DRG 540 ==
LOC: ANHLDR 05:31 → ANHOB2 11:16
PROVIDERS: Admitting Provider Obstetrics & Gynecology; PCP Family Medicine; Visit Provider Obstetrics & Gynecology
PROC: 10D00Z1 Extraction of Products of Conception, Low, Open Approach (ICD-10-PCS; CPT 59514; principal; 2022-08-13 07:30)
DX: O34.211 Maternal care for low transverse scar from previous cesarean delivery (principal); E66.9 Obesity, unspecified; Z37.0 Single live birth; Z3A.39 39 weeks gestation of pregnancy; F41.8 Other specified anxiety disorders; O24.429 Gestational diabetes mellitus in childbirth, unspecified control; O77.0 Labor and delivery complicated by meconium in amniotic fluid; O99.344 Other mental disorders complicating childbirth; O99.214 Obesity complicating childbirth; Z30.2 Encounter for sterilization
CPT/HCPCS: 36415; 82948; 85025; 85027; 86592; 86850; 86900; 86901; 88302; 88307; A9270; J0690; J1200; J1885; J2274; J2370; J2405; J2590; J3010; J7120

== ENCOUNTER 2024-01-31 07:44 | Outpatient (CLI) | payer OTHER, SELFPAY ==
--- NOTE | ~2024-01-31 | US_ITS ---
EXAMINATION: US abdomen complete DATE: 01/31/2024 08:23 INDICATION: Right upper quadrant abdominal pain. Abdominal mass. TECHNIQUE: Multiple grayscale and Doppler ultrasound images of the abdomen were obtained. COMPARISON: CT abdomen pelvis 05/17/2017 FINDINGS: The visualized portions of the head, body, and tail of the pancreas are normal. Abdominal a anthony is normal in caliber. Inferior vena cava is normal. The liver is normal without focal lesion. Th ere is normal flow in main portal vein. The gallbladder is normal in size. No gallstones or gallbladd er wall thickening. There is no sonographic Avendano's sign. The common duct is normal and measures 3 m m. The spleen is normal in size. The kidneys are normal in size. There is no abnormality in the area of the patient's lump in right upper quadrant. IMPRESSION: 1. Normal complete abdomen ultrasound. Reviewed, dictated and finalized at location A.
== END 2024-01-31 07:45 | disposition home or self-care (01) ==
PROVIDERS: PCP Nurse Practitioner Family; Visit Provider Nurse Practitioner Family
DX: R19.01 Right upper quadrant abdominal swelling, mass and lump (principal)
CPT/HCPCS: 76700